=== PATIENT | female | born 1985 | race Caucasian/White ===

== ENCOUNTER 2016-10-10 16:18 | Emergency (ER) | payer OTHER ==
[2016-10-10] MEDS ORDERED: Tetan/Diph/Pertus SYR(Tdap)* 0.5 ML SYR(BOOSTRIX) use SYR IM ONE (16:52)
[2016-10-10 17:00] VITALS: BP 111/55
--- NOTE | 2016-10-10 17:03 | UC ---
Skin Complaint HPI - HPI Summary HPI Summary: patient cut right foot on a marcia nail. area is red and swollen, painful to touch. she is 8 wks . - History of Current Complaint Chief Complaint: UCSkin Time Seen by Provider: 10/10/16 16:45 Stated Complaint: SKIN COMPLAINT Hx Obtained From: Patient Hx Last Menstrual Period: 09/01/16 ?: Yes Onset/Duration: Sudden Onset, Lasting Days Skin Exposure Onset/Duration: Days Ago Timing: Constant Onset Severity: Mild Current Severity: Moderate Pain Intensity: 6 Pain Scale Used: 0-10 Numeric Location: Discrete, Foot (Right) Character: Swelling, Redness, Painful Aggravating: Nothing Alleviating: Nothing - Allergy/Home Medications Allergies/Adverse Reactions: Allergies Allergy/AdvReac Type Severity Reaction Status Date / Time No Known Allergies Allergy Verified 10/10/16 16:44 Home Medications: Home Medications Vitamin [Calna] 1 tab PO DAILY 10/10/16 [History Confirmed 10/10/16] Review of Systems Constitutional: Negative Skin: Other - cut Eyes: Negative ENT: Negative Respiratory: Negative Cardiovascular: Negative Gastrointestinal: Negative Genitourinary: Negative Motor: Negative Neurovascular: Negative Musculoskeletal: Negative Neurological: Negative Psychological: Negative All Other Systems Reviewed And Are Negative: Yes PMH/Surg Hx/FS Hx/Imm Hx Previously Healthy: Yes - Surgical History Surgical History: None - Family History Family History: neg for HTN or CAD - Social History Alcohol Use: None Substance Use Type: None Smoking Status (MU): Former Smoker Type: Cigarettes Amount Used/How Often: 5 CIGS PER DAY Length of Time of Smoking/Using Tobacco: 7 yrs Have You Smoked in the Last Year: Yes When Did the Patient Quit Smoking/Using Tobacco: 2 WKS AGO WHEN FOUND TO BE Physical Exam Triage Information Reviewed: Yes Appearance: Well-Appearing, Well-Nourished, Pain Distress Vital Signs: Initial Vital Signs Temp 97.9 F 10/10/16 16:37 Pulse 81 10/10/16 16:37 Resp 16 10/10/16 16:37 BP 111/55 10/10/16 16:37 Pulse Ox 100 10/10/16 16:37 Vital Signs Reviewed: Yes Eye Exam: Normal Eyes: Positive: Conjunctiva Clear ENT Exam: Normal ENT: Positive: Normal ENT inspection, Hearing grossly normal, TMs normal Dental Exam: Normal Neck exam: Normal Neck: Positive: Supple, Nontender, No Lymphadenopathy Respiratory Exam: Normal Respiratory: Positive: Chest non-tender, Lungs clear, Normal breath sounds Cardiovascular Exam: Normal Cardiovascular: Positive: RRR, No Murmur, Pulses Normal Abdominal Exam: Normal Abdomen Description: Positive: Nontender, No Organomegaly, Soft Bowel Sounds: Positive: Present Musculoskeletal Exam: Normal Musculoskeletal: Positive: Strength Intact, ROM Intact, No Edema Neurological Exam: Normal Neurological: Positive: Alert, Muscle Tone Normal Psychological Exam: Normal Skin: Positive: significant lesion(s) - small scabbed area on right base of 5th met. red, swollen, painful with palpation.no drainage. Course/Dx - Course Course Of Treatment: hx obtained, medication reviewed, exam performed, Dr elizabeth consulted about meds in . tetanus shot given do to patient not knowing last tetanus. kefliex prescribed. - Differential Diagnoses - Skin Complaint Differential Diagnoses: Abscess, Cellulitis, Contact Dermatitis, Urticaria - Diagnoses Provider Diagnoses: cellulitis right foot Discharge - Discharge Plan Condition: Stable Disposition: HOME Prescriptions: Cephalexin CAP* [Keflex CAP*] 500 mg PO TID #21 cap Patient Education Materials: Cellulitis (ED) Additional Instructions: take the medication as prescribed. warm foot soaks a few times a day to promote circulation. follow up with any increased redness, swelling, pain or fever.
== END 2016-10-10 17:09 | disposition home or self-care (01) ==
LOC: UCCORT 16:18
DX: O26.891 Other specified pregnancy related conditions, first trimester (principal); Z3A.01 Less than 8 weeks gestation of pregnancy; S91.311A Laceration without foreign body, right foot, initial encounter; L03.115 Cellulitis of right lower limb; W45.0XXA Nail entering through skin, initial encounter; Y93.9 Activity, unspecified; Y92.9 Unspecified place or not applicable; Z23 Encounter for immunization; Z87.891 Personal history of nicotine dependence
CPT/HCPCS: 90471; 90715; 99212; G0463